=== PATIENT | male | born 2000 | race Caucasian/White ===

== ENCOUNTER 2022-05-13 10:52 | Emergency (ER) | payer MEDICAID, OTHER, SELFPAY ==
[~2022-05-13] VITALS: Ht 167.6 cm; Wt 59.1 kg
[2022-05-13] MEDS ORDERED: GI COCKTAIL 50ML BTL(HYOSCYAMINE/MAALOX/LIDOCAINE VISCOUS)(1:3:1) PO ONE (13:00)
[2022-05-13] MEDS ORDERED: BENZONATATE 100MG CAPSULE PO ONE (13:00)
[2022-05-13] MEDS: ALBUTEROL 90 MCG/ACT 8GM HFA INHALER INH SCH ×3 (13:28→13:40)
[2022-05-13] MEDS ORDERED: ONDANSETRON 4MG 2ML VIAL IV ONE (14:35)
[2022-05-13] MEDS ORDERED: NS 1,000 ML IV ONE (14:35)
[2022-05-13 15:23] LABS: BASO # 0.1 10^3/uL (0.0-0.2); BASO % 0.3 % (0.0-1.0); HEMATOCRIT 39.8 % (42.0-52.0); HEMOGLOBIN 13.4 g/dl (13.5-17.5); LYMPH # 8.1 10^3/uL (1.5-5.0); MEAN CORPUSCULAR HEMOGLOBIN 27.6 pg (27.0-33.0); MEAN CORPUSCULAR HGB CONC 33.7 g/dl (32.0-36.5); MEAN CORPUSCULAR VOLUME 81.9 fl (80.0-96.0); MONO # 1.1 10^3/uL (0.0-0.8); MONO % 6.1 % (2.0-8.0); NEUTROPHILS # 8.7 10^3/uL (1.5-8.5); PLATELET COUNT, AUTOMATED 227 10^3/uL (150-450); RED BLOOD COUNT 4.86 10^6/uL (4.30-6.10); WHITE BLOOD COUNT 18.1 10^3/uL (4.0-10.0)
[2022-05-13 15:34] LABS: ERYTHROCYTE SEDIMENTATION RATE 42 mm/hr (0-15)
[2022-05-13] MEDS ORDERED: OMEPRAZOLE 20MG CAP PO ONE (15:40)
[2022-05-13 16:44] VITALS: BP 127/63
[2022-05-13] MEDS ORDERED: PROA1AER2 INH (16:53)
[2022-05-13] MEDS ORDERED: BENZ200C70 PO (16:53)
[2022-05-13] MEDS ORDERED: MUCI1TAB16 PO (16:53)
[2022-05-13] MEDS ORDERED: LIDO15SO4 PO (16:53)
[2022-05-13] MEDS ORDERED: CEFD300C41 PO (16:55)
[2022-05-13] MEDS ORDERED: OMEP-173 PO (16:57)
== END 2022-05-13 17:45 | disposition home or self-care (01) ==
LOC: M ED 10:52
DX: J01.90 Acute sinusitis, unspecified (principal); D72.829 Elevated white blood cell count, unspecified; R59.0 Localized enlarged lymph nodes; J45.909 Unspecified asthma, uncomplicated; Z79.52 Long term (current) use of systemic steroids; Z79.2 Long term (current) use of antibiotics; Z79.899 Other long term (current) drug therapy
CPT/HCPCS: 71046; 80047; 85025; 85652; 86140; 87040; 87486; 87581; 87633; 87798; 87880; 94640; 96361; 96374; 99284; J2405